=== PATIENT | female | born 1970 | race Caucasian/White ===

== ENCOUNTER 2017-02-06 08:51 | Emergency (ER) | payer MEDICAID, OTHER ==
[~2017-02-06] VITALS: Ht 167.6 cm; Wt 97.5 kg
[~2017-02-06 08:51] MED LIST: AMBIEN10 MG PO; ESTRACE1 MG PO; LOPRESSOR25 MG PO; PROVERA2.5 MG PO; SUBOXONE 8 MG-21 TAB PO; SYNTHROID0.05 MG PO; TENORMIN25 MG PO; TOPROL XL25 MG PO; XANAX0.5 MG PO
--- NOTE | 2017-02-06 08:51 | NUR ---
Patient was BIBA and taken to bed 03 via gurney per EMS.
[2017-02-06] MEDS ORDERED: KETOROLAC 30 MG/ML VIAL IM ONE (08:55)
[2017-02-06] MEDS ORDERED: HYDROcodone/APAP 5/325 MG 1 TAB TAB PO ONE (08:55)
--- NOTE | 2017-02-06 08:55 | NUR ---
Dr. Coleman evaluating patient at bedside.
[2017-02-06 08:57] VITALS: BP 141/101
[2017-02-06] MEDS ORDERED: GLUCOPHAGE1000 MG PO (08:59)
--- NOTE | 2017-02-06 09:02 | NUR ---
PATIENT PRESENTS TO ED WITH right elbow pain s/p fall of 7 flight of stairs . PT STATES [footing was caught on stair . DENIES KO- SKIN IS PINK/WARM/DRY--abrasion to right side of back noted; AAOX4 WITH EVEN AND STEADY GAIT; LUNGS CLEAR BL; HR EVEN AND REGULAR; PT DENIES ANY FEVER, CP, SOB, OR COUGH AT THIS TIME; PATIENT STATES PAIN OF 7/10 to right elbow AT THIS TIME; VSS; PATIENT POSITIONED FOR COMFORT; HOB ELEVATED; BEDRAILS UP X2; BED DOWN. ER MD MADE AWARE OF PT STATUS.
--- NOTE | 2017-02-06 09:10 | NUR ---
pt to x-ray via wheel chair
--- NOTE | 2017-02-06 09:40 | NUR ---
Patient back from XRAY via wheelchair per tech.
--- NOTE | 2017-02-06 09:44 | NUR ---
returned from x-ray via wheel chair
[2017-02-06] MEDS ORDERED: ONDANSETRON 4 MG ODT PO ONE (09:45)
--- NOTE | 2017-02-06 10:03 | NUR ---
ambulatory to and from restroom with steady gait, holding her rue for comfort. placed a sling on rue when pt returned to [facility]---admits feeling better.
[2017-02-06 10:24] VITALS: BP 132/90
--- NOTE | 2017-02-06 10:24 | NUR ---
Patient discharged with v/s stable. Written and verbal after care instructions given and explained. Patient alert, oriented and verbalized understanding of instructions. Ambulatory with steady gait. All questions addressed prior to discharge. ID band removed. Patient advised to follow up with PMD. Rx of norco/motrin given. Patient educated on indication of medication including possible reaction and side effects. Opportunity to ask questions provided and answered.
== END 2017-02-06 10:24 | disposition home or self-care (01) ==
LOC: MED 08:51
DX: S53.401A Unspecified sprain of right elbow, initial encounter (principal); S29.012A Strain of muscle and tendon of back wall of thorax, initial encounter; E03.9 Hypothyroidism, unspecified; I10 Essential (primary) hypertension; E11.9 Type 2 diabetes mellitus without complications; Z88.1 Allergy status to other antibiotic agents; W10.9XXA Fall (on) (from) unspecified stairs and steps, initial encounter; Y93.89 Activity, other specified; Y92.89 Other specified places as the place of occurrence of the external cause; Y99.8 Other external cause status
CPT/HCPCS: 72072; 72110; 73060; 73080; 96372; 99284; J1885; S0119

== ENCOUNTER 2017-02-13 18:54 | Emergency (ER) | payer SELFPAY ==
[~2017-02-13] VITALS: Ht 165.1 cm; Wt 98.0 kg
[~2017-02-13 18:54] MED LIST changes: +ALPR0.5T2 PO; -AMBIEN10 MG PO; +ATEN25TA7 PO; -ESTRACE1 MG PO; -LOPRESSOR25 MG PO; +METF1000 PO; -PROVERA2.5 MG PO; -SUBOXONE 8 MG-21 TAB PO; +SYN.05 PO; -SYNTHROID0.05 MG PO; -TENORMIN25 MG PO; -TOPROL XL25 MG PO; -XANAX0.5 MG PO; +ZOLP10TA1 PO
[2017-02-13 19:05] VITALS: BP 141/90
--- NOTE | 2017-02-13 20:08 | NUR ---
PT TAKEN TO OF
--- NOTE | 2017-02-13 20:08 | NUR ---
Dr. Johnson evaluating patient at bedside.
[2017-02-13 20:21] VITALS: BP 136/78
--- NOTE | 2017-02-13 20:21 | NUR ---
Patient discharged with v/s stable. Written and verbal after care instructions given and explained. Patient alert, oriented and verbalized understanding of instructions. Ambulatory with steady gait. All questions addressed prior to discharge. ID band removed. Patient advised to follow up with PMD. Rx of Naproxen and Tramadol given. Patient educated on indication of medication including possible reaction and side effects. Opportunity to ask questions provided and answered.
== END 2017-02-13 20:21 | disposition home or self-care (01) ==
LOC: MED 18:54
DX: M65.88 Other synovitis and tenosynovitis, other site (principal); I10 Essential (primary) hypertension; E03.9 Hypothyroidism, unspecified; E11.9 Type 2 diabetes mellitus without complications; Z79.84 Long term (current) use of oral hypoglycemic drugs
CPT/HCPCS: 82948; 99283